=== PATIENT | female | born 1955 | race Caucasian/White ===

== ENCOUNTER 2016-04-14 13:23 | Emergency (ER) | payer BC ==
--- NOTE | 2016-04-14 13:33 | PDOC ---
History of Present Illness - General History Source: Patient, Old Records Exam Limitations: No Limitations <Erin Cortez - Last Filed: 04/14/16 14:18> - General History Source: Patient Exam Limitations: No Limitations - History of Present Illness Initial Comments: 04/14/16 13:48 The patient is a 60 year old female, with a significant past medical history of diabetes, IA, arthritis, who presents to the emergency department with chest pain since this morning and cough for the past 3 days. She describes the chest pain as a pressure sensation, localized under the left breast, ranging from mild to moderate, without radiation. She denies any modifying factors. She notes that her cough is productive of a whitish yellow sputum. She states that her last sugar reading today was 230. The patient denies shortness of breath, headache and dizziness. Denies fever, chills, nausea, vomit, diarrhea and constipation. Denies dysuria, frequency, urgency and hematuria. Allergies: Quinolones, Avelox, Percocet, infliximab Past surgical history: lakeisha carpal tunnel release,right shoulder arthroscopy x3, cholecystectomy Social history: Former smoker (quit 4 years ago) <Pedro Pablo Joshi - Last Filed: 04/14/16 17:02> <Eleonora Singletary - Last Filed: 04/14/16 20:21> - General Chief Complaint: Chest Pain Stated Complaint: CHEST PAIN Time Seen by Provider: 04/14/16 13:33 Past History - Past Medical History Anemia: No Asthma: No Cancer: No Cardiac Disorders: No CVA: No COPD: No CHF: No Dementia: No Diabetes: Yes (x20 yrs) GI Disorders: No Disorders: No HTN: No Hypercholesterolemia: No Liver Disease: No Seizures: No Thyroid Disease: No - Surgical History Abdominal Surgery: No Appendectomy: No Cardiac Surgery: No Cholecystectomy: Yes Lung Surgery: No Neurologic Surgery: No Orthopedic Surgery: Yes (lakeisha carpal tunnel release,right shoulder arthroscopy x3 ) - Psycho/Social/Smoking Cessation Hx Anxiety: No Suicidal Ideation: No Smoking Status: Yes Smoking History: Former smoker Have you smoked in the past 12 months: No Number of Cigarettes Smoked Daily: 3 If you are a former smoker, when did you quit?: 11/2010 'Breaking Loose' booklet given: 04/18/13 Hx Alcohol Use: Yes Drug/Substance Use Hx: No Substance Use Type: None Hx Substance Use Treatment: No <Erin Cortez - Last Filed: 04/14/16 14:18> <Pedro Pablo Joshi - Last Filed: 04/14/16 17:02> <Eleonora Singletary - Last Filed: 04/14/16 20:21> - Past Medical History Allergies/Adverse Reactions: Allergies Allergy/AdvReac Type Severity Reaction Status Date / Time infliximab [From Remicade] Allergy Verified 04/14/16 13:42 moxifloxacin HCl Allergy Hives Verified 04/14/16 13:42 [From Avelox] Quinolones Allergy Hives Verified 04/14/16 13:42 oxycodone HCl [From Percocet] AdvReac Mild Itching Verified 04/14/16 13:42 Home Medications: Ambulatory Orders Folic Acid 1 mg PO DAILY 03/25/11 Insulin Pump Cartridge [Cartridge Stamped] 1 each SQ ASDIR 03/25/11 Lisinopril [Prinivil] 10 mg PO DAILY 03/25/11 Multivitamins [Multivit ([facility] Formulary)] 1 each PO DAILY 03/25/11 Aspirin [Ecotrin] 81 mg PO DAILY 04/14/16 Dulaglutide [Trulicity] 0.75 mg SQ WEEKLY 04/14/16 Pitavastatin Calcium [Livalo] 2 mg PO ASDIR 04/14/16 Tofacitinib Citrate [Xeljanz Xr] 11 mg PO DAILY 04/14/16 Ubidecarenone [Coq-10] 100 mg PO DAILY 04/14/16 Review of Systems - Review of Systems Able to Perform ROS?: Yes Comments:: 04/14/16 13:48 GENERAL/CONSTITUTIONAL: No fever or chills. No weakness. HEAD, EYES, EARS, NOSE AND THROAT: No change in vision. No ear pain or discharge. No sore throat. CARDIOVASCULAR: +Chest pain. No shortness of breath RESPIRATORY: +Cough. No wheezing, or hemoptysis. GASTROINTESTINAL: No nausea, vomiting, diarrhea or constipation. GENITOURINARY: No dysuria, frequency, or change in urination. MUSCULOSKELETAL: No joint or muscle swelling or pain. No neck or back pain. SKIN: No rash NEUROLOGIC: No headache, vertigo, loss of consciousness, or change in strength/ sensation. ENDOCRINE: No increased thirst. No abnormal weight change HEMATOLOGIC/LYMPHATIC: No anemia, easy bleeding, or history of blood clots. ALLERGIC/IMMUNOLOGIC: No hives or skin allergy <Pedro Pablo Joshi - Last Filed: 04/14/16 17:02> *Physical Exam - Vital Signs Last Vital Signs Temp Pulse Resp BP Pulse Ox 70 18 151/64 100 04/14/16 13:25 04/14/16 13:25 04/14/16 13:25 04/14/16 13:25 - Physical Exam Comments: 04/14/16 13:50 GENERAL: Awake, alert, and fully oriented, in no acute distress HEAD: No signs of trauma, normocephalic, atraumatic EYES: PERRLA, EOMI, sclera anicteric, conjunctiva clear ENT: Auricles normal inspection, hearing grossly normal, nares patent, oropharynx clear without exudates. Moist mucosa NECK: Normal ROM, supple, no lymphadenopathy, JVD, or masses LUNGS: +Mild crackles at the left lung base. No distress, speaks full sentences HEART: Regular rate and rhythm, normal S1 and S2, no murmurs, rubs or gallops, peripheral pulses normal and equal bilaterally. ABDOMEN: Soft, nontender, normoactive bowel sounds. No guarding, no rebound. No masses EXTREMITIES: Normal inspection, Normal range of motion, no edema. No clubbing or cyanosis. NEUROLOGICAL: Cranial nerves II through XII grossly intact. Normal speech, normal gait, no focal sensorimotor deficits SKIN: Warm, Dry, normal turgor, no rashes or lesions noted. <Pedro Pablo Joshi - Last Filed: 04/14/16 17:02> - Vital Signs Last Vital Signs Temp Pulse Resp BP Pulse Ox 98.2 F 58 L 18 126/71 99 04/14/16 13:25 04/14/16 19:54 04/14/16 19:54 04/14/16 19:54 04/14/16 19:54 <Eleonora Singletary - Last Filed: 04/14/16 20:21> ED Treatment Course - LABORATORY CBC & Chemistry Diagram: 04/14/16 13:35 04/14/16 13:35 - RADIOLOGY Radiology Studies Ordered: Category Date Time Status CHEST PA & LAT [RAD] Stat Radiology 04/14/16 13:29 Ordered <DanaErin - Last Filed: 04/14/16 14:18> - LABORATORY CBC & Chemistry Diagram: 04/14/16 13:35 04/14/16 13:35 - RADIOLOGY Radiograph Interpretation: 04/14/16 14:06 Chest X-Ray Reviewed by: Dr. Nivia Putnam Impression: No significant interval change or acute lung disease is present. <Pedro Pablo Joshi - Last Filed: 04/14/16 17:02> - LABORATORY CBC & Chemistry Diagram: 04/14/16 13:35 04/14/16 13:35 - ADDITIONAL ORDERS Additional order review: Laboratory Results 04/14/16 04/14/16 04/14/16 19:28 18:01 13:35 INR Sodium 140 Potassium 4.4 Chloride 106 Carbon Dioxide 25 Anion Gap 9 BUN 28 H Creatinine 1.1 H Creat Clearance w eGFR 50.33 POC Glucometer 139.77932 Random Glucose 299 H D Calcium 9.1 Magnesium 2.3 Total Bilirubin 0.4 AST 28 ALT 25 Alkaline Phosphatase 92 Creatine Kinase 123 154 CK-MB (CK-2) 1.345 Troponin I < 0.02 < 0.02 Total Protein 6.8 Albumin 3.8 04/14/16 13:35 INR 1.00 Sodium Potassium Chloride Carbon Dioxide Anion Gap BUN Creatinine Creat Clearance w eGFR POC Glucometer Random Glucose Calcium Magnesium Total Bilirubin AST ALT Alkaline Phosphatase Creatine Kinase CK-MB (CK-2) Troponin I Total Protein Albumin 04/14/16 13:45 Influenza Types A,B Antigen (ALIZA) - Final Nasopharyngeal Swab - Final 04/14/16 04/14/16 18:01 13:35 RBC 4.44 MCV 93.3 MCHC 33.5 RDW 15.2 MPV 10.2 Neutrophils % 55.8 Lymphocytes % 31.7 Monocytes % 9.6 Eosinophils % 1.8 D Basophils % 1.1 POC Glucometer 139.15064 - Medications Given in the ED: ED Medications Discontinued Medications Generic Name Dose Route Start Last Admin Trade Name Freq PRN Reason Stop Dose Admin Sodium Chloride 1,000 mls @ 1,000 mls/hr 04/14/16 14:50 04/14/16 14:54 Normal Saline - IV 04/14/16 15:49 1,000 mls/hr ASDIR STA Administration <Eleonora Singletary - Last Filed: 04/14/16 20:21> Medical Decision Making - Medical Decision Making 04/14/16 14:19 60-year-old female with history of hypertension, diabetes, coronary artery disease status post IA last year who presents to the emergency Department with complaints of cough and left-sided chest pain that his been intermittent 2 days. Differential diagnosis includes but is not limited to: ACS, influenza, pneumonia, musculoskeletal disease, electrolyte abnormality, toxic/metabolic derangement. Plan: 1. EKG 2. Chest x-ray 3. Influenza PCR 4. Labs 5. Pain management 6. Observe and reevaluate <Erin Cortez - Last Filed: 04/14/16 14:18> - Medical Decision Making 04/14/16 16:58 Dr. Jeniffer Reynaga was called regarding the patient at 4:56pm Dr. Reynaga not in the office [phone] Dr. Coto was called regarding the patient at 5:03pm [phone] <Pedro Pablo Joshi - Last Filed: 04/14/16 17:02> *DC/Admit/Observation/Transfer - Attestations Physician Attestion: 04/14/16 14:20 I, Dr. Erin Cortez, attest that the scribes documentation that appears above has been prepared under my direction and personally reviewed by me in its entirety. I confirmed that the note above accurately reflects all work, treatment, procedures, and medical decision-making performed by me. <Erin Cortez - Last Filed: 04/14/16 14:18> - Attestations Scribe Attestion: 04/14/16 13:51 Documentation prepared by Pedro Pablo Joshi, acting as certified ophthalmic medical technician for Erin Cortez MD <Pedro Pablo Joshi - Last Filed: 04/14/16 17:02> <Eleonora Singletary - Last Filed: 04/14/16 20:21> Diagnosis at time of Disposition: Cough Chest pain Qualifiers: Chest pain type: unspecified Qualified Code(s): R07.9 - Chest pain, unspecified - Discharge Dispostion Disposition: HOME Condition at time of disposition: Stable - Referrals Referrals: Jeniffer Reynaga MD [Primary Care Provider] - - Patient Instructions Printed Discharge Instructions: DI for Atypical Chest Pain, DI for Viral Syndrome Additional Instructions: -please take tylenol for fever and body aches -drink plenty of water -rest -return to the emergency department if your symptoms worsen
[2016-04-14 13:43] VITALS: BMI 32.9
[2016-04-14 13:47] LABS: BASOPHIL 1.1 % (0-2.0); EOSINOPHIL 1.8 % (0-4.5); MCH 31.3 pg (25.7-33.7); MCHC 33.5 g/dl (32.0-36.0); MEAN CELL VOLUME 93.3 fl (80-96); MEAN PLT VOLUME 10.2 fl (7.5-11.1); NEUTROPHILS 55.8 % (42.8-82.8); PLATELET COUNT 203 K/MM3 (134-434); RDW 15.2 % (11.6-15.6)
[2016-04-14 13:53] VITALS: TEMP 98.2
[2016-04-14 14:15] LABS: ALBUMIN 3.8 g/dl (3.4-5.0); ANION GAP 9 (8-16); CALCIUM 9.1 mg/dL (8.5-10.1); CO2 25 mmol/L (21-32); GLUCOSE,RANDOM 299 mg/dL (74-106); MAGNESIUM 2.3 mg/dL (1.8-2.4)
[2016-04-14 14:26] LABS: ALK PHOS 92 U/L (45-117); BILIRUBIN,TOTAL 0.4 mg/dL (0.2-1.0); CREATININE 1.1 mg/dL (0.55-1.02); SGPT/ALT 25 U/L (12-78); TOT PROT 6.8 g/dl (6.4-8.2); TROPONIN I < 0.02 ng/ml (0.00-0.05)
[2016-04-14 14:29] LABS: SGOT/AST 28 U/L (15-37)
--- NOTE | 2016-04-14 14:34 | EKG ---
Test Reason : Blood Pressure : / mmHG Vent. Rate : 068 BPM Atrial Rate : 068 BPM P-R Int : 136 ms QRS Dur : 096 ms QT Int : 392 ms P-R-T Axes : 022 -30 048 degrees QTc Int : 416 ms NORMAL SINUS RHYTHM LEFT AXIS DEVIATION MINIMAL VOLTAGE CRITERIA FOR LVH, MAY BE NORMAL VARIANT ABNORMAL ECG WHEN COMPARED WITH ECG OF 09-DEC-2011 09:31, NO SIGNIFICANT CHANGE WAS FOUND Confirmed by CAN DANIELSON, JEANA ([id number]) on 04/14/2016 2:33:54 PM Referred By: Confirmed By:JEANA NORTH MD
[2016-04-14] MEDS ORDERED: SODIUM CHLORIDE 1,000 ML IV STA (14:50)
[2016-04-14 19:55] VITALS: BP 126/71; PULSE 58
[2016-04-14 20:09] LABS: TROPONIN I < 0.02 ng/ml (0.00-0.05)
== END 2016-04-14 20:45 | disposition home or self-care (01) ==
LOC: JER 13:23
PROC: 3E0337Z Introduction of Electrolytic and Water Balance Substance into Peripheral Vein, Percutaneous Approach (ICD-10-PCS; principal; 2016-04-14)
DX: R07.9 Chest pain, unspecified (principal); I25.10 Atherosclerotic heart disease of native coronary artery without angina pectoris; I10 Essential (primary) hypertension; Z87.891 Personal history of nicotine dependence; I25.2 Old myocardial infarction; E11.9 Type 2 diabetes mellitus without complications; Z79.4 Long term (current) use of insulin; Z96.41 Presence of insulin pump (external) (internal)
CPT/HCPCS: 36415; 71010-TC; 80053; 82550; 82553; 83735; 84484; 85025; 85610; 87804; 93005; 93010; 99285-25

== ENCOUNTER 2016-06-24 07:16 | Day surgery (SDC) | payer BC ==
[2016-06-19 10:19] VITALS: BMI 34.9
[2016-06-24] MEDS ORDERED: BSS (NA/CA/MG/K) BALANCED SALT SOLUTION OPHTH SOLN 15 ML BOTTLE ONE (07:31)
[2016-06-24] MEDS ORDERED: LIDOCAINE 1% P/F 10 MG/ML VIAL ONE (07:31)
[2016-06-24] MEDS ORDERED: CARBACHOL 0.01% INTRA-OCULAR 1.5 ML VIAL ONE (07:31)
[2016-06-24] MEDS: CIPROFLOXACIN 0.3% EYE DROPS 5 ML BOTTLE ONE ×3 (08:00→08:10)
[2016-06-24] MEDS: CYCLOPENTOLATE 2% OPHTH SOLN 2 ML BOTTLE ONE ×3 (08:00→08:10)
[2016-06-24] MEDS: PHENYLEPHRINE 2.5% OPHTH SOLN 15 ML BOTTLE ONE ×3 (08:00→08:10)
[2016-06-24] MEDS: TROPICAMIDE 1% OPHTH SOLN 15 ML BOTTLE ONE ×3 (08:00→08:10)
[2016-06-24] MEDS ORDERED: MIDAZOLAM HCL 2 MG/2 ML SINGLE DOSE VIAL ONE (09:43)
[2016-06-24 10:30] VITALS: TEMP 98.4
[2016-06-24] MEDS ORDERED: LACTATED RINGERS SOLUTION 1,000 ML IV SCH (10:30)
[2016-06-24] MEDS ORDERED: ACETAMINOPHEN 325 MG TABLET (FP) PO PRN (10:32)
[2016-06-24] MEDS ORDERED: ONDANSETRON 4 MG/2 ML VIAL IVPUSH PRN (10:33)
[2016-06-24 11:00] VITALS: BP 130/48; PULSE 64
--- NOTE | 2016-06-24 11:53 | OP ---
DATE OF OPERATION: 06/24/2016 OPERATIVE PROCEDURE: Lens Phacoemulsification with Posterior Chamber Intraocular Lens Placement Left Eye PREOPERATIVE DIAGNOSIS: Visually Significant Cataract of Left Eye POSTOPERATIVE DIAGNOSIS: Visually Significant Cataract of Left Eye SURGEON: Johnie Sierra M.D. ANESTHESIA: MAC PROCEDURE: The patient was brought to the operating room and placed under monitored anesthesia care by Anesthesia. A drop of Tetracaine was then placed over the left eye. The patient was then prepped and draped in the usual sterile manner. A speculum was then placed over the left eye. The eye was then well irrigated with copious amounts of BSS (balanced salt solution). The operating microscope was then moved into position. A paracentesis was performed using a 15 degree blade. At this point 0.5 mL of 1% preservative-free lidocaine was injected into the anterior chamber. Amvisc plus was then injected into the anterior chamber. A clear corneal incision was then formed using a 2.2 mm keratome. A capsulorrhexis was then performed in a continuous circular fashion beginning with a cystotome, completed with an Utratas forceps. Hydrodissection was then performed using BSS on a cannula. The phaco probe was then introduced through the corneal wound and the cataract was removed using the phaco chop technique. Approximately 3 seconds of absolute phaco time was used. The remaining cortex was then removed using irrigation and aspiration with an I/A probe. The capsule was then filled with regular Amvisc and the capsule was noted to be intact. A previously selected foldable posterior chamber intraocular lens was then injected into the capsule through the corneal wound using a lens injector. It was then dialed into position using a Sinskey hook. The Amvisc was then removed using irrigation and aspiration. Miostat was then injected through the paracentesis to constrict the pupil. The paracentesis and corneal wound were then hydrated and noted to be water tight. A drop of Maxitrol was then placed over the eye. The speculum was removed and clear shield was taped over the eye. The patient tolerated the procedure well and there were no surgical complications. The patient was asked to follow up in my office the next day. JOHNIE SIERRA M.D. FRANCES/[id number]
== END 2016-06-24 11:05 | disposition home or self-care (01) ==
LOC: FASU 07:16
PROVIDERS: ATTEND Ophthalmology
PROC: 08RK3JZ Replacement of Left Lens with Synthetic Substitute, Percutaneous Approach (ICD-10-PCS; principal; 2016-06-24 09:58)
DX: H26.8 Other specified cataract (principal)

== ENCOUNTER 2016-09-29 19:27 | Emergency (ER) | payer BC ==
[2016-09-29 19:44] VITALS: BP 173/87; PULSE 95; TEMP 98; BMI 34.7
[2016-09-29] MEDS ORDERED: IBUPROFEN 400 MG TABLET (FP) PO ONE ×2 (19:59→20:02)
--- NOTE | 2016-09-29 19:59 | PDOC ---
History of Present Illness - General History Source: Patient Exam Limitations: No Limitations - History of Present Illness Initial Comments: 09/29/16 20:17 The patient is a 60 year old female with a significant past medical history of diabetes, NE, arthritis who presents to the ED s/p fall earlier today. Patient reports she was walking her dog when she slipped and fell onto the mud. She states she heard something crack secondary to falling. Patient states she fell onto her left side and reports left rib pain. She reports her left rib pain radiates to her back. Denies loss of consciousness. Denies head injury or headache.Denies fevers or chills. Denies focal numbness, weakness or tingling. Denies any other symptoms. Allergies: Quinolones, Avelox, Percocet, infliximab Past surgical hx: bilateral carpal tunnel release, right shoulder arthroscopy x3 , cholecystectomy Social hx: Patient is an employee of [employer]. Patient is a former smoker (quit 4 years ago. <Luis Enrique Morin - Last Filed: 09/29/16 21:54> - General History Source: Patient <Pedro Pablo Nicholson - Last Filed: 09/29/16 23:55> - General Chief Complaint: Injury Stated Complaint: RIB INJURY/EMPLOYEE Time Seen by Provider: 09/29/16 19:42 Past History <Luis Enrique Morin - Last Filed: 09/29/16 21:54> - Past Medical History Anemia: No Asthma: No Cancer: No Cardiac Disorders: Yes (SILENT NE 2016,SEEN ON EKG,HAS HAD STRESS AND ECHO,OK) CVA: No COPD: No CHF: No Dementia: No Diabetes: Yes (x20 yrs) GI Disorders: No Disorders: No HTN: Yes Hypercholesterolemia: Yes Liver Disease: No Seizures: No Thyroid Disease: No Other medical history: Rt rotator cuff tear, Rheumatoid Arthritis, - Surgical History Abdominal Surgery: No Appendectomy: No Cardiac Surgery: No Cholecystectomy: Yes Lung Surgery: No Neurologic Surgery: No Orthopedic Surgery: Yes (lakeisha carpal tunnel release,right shoulder arthroscopy x3 ) - Psycho/Social/Smoking Cessation Hx Anxiety: No Suicidal Ideation: No Smoking Status: Yes Smoking History: Current every day smoker Have you smoked in the past 12 months: No Number of Cigarettes Smoked Daily: 2 If you are a former smoker, when did you quit?: 11/2010 Information on smoking cessation initiated: No 'Breaking Loose' booklet given: 04/18/13 Hx Alcohol Use: No Drug/Substance Use Hx: No Substance Use Type: None Hx Substance Use Treatment: No <Pedro Pablo Nicholson - Last Filed: 09/29/16 23:55> - Past Medical History Allergies/Adverse Reactions: Allergies Allergy/AdvReac Type Severity Reaction Status Date / Time infliximab [From Remicade] Allergy Verified 09/29/16 19:44 moxifloxacin HCl Allergy Hives Verified 09/29/16 19:44 [From Avelox] Quinolones Allergy Hives Verified 09/29/16 19:44 oxycodone HCl [From Percocet] AdvReac Mild Itching Verified 09/29/16 19:44 Home Medications: Ambulatory Orders Folic Acid 2 mg PO DAILY 03/25/11 Insulin Pump Cartridge [Cartridge Stamped] 1 each SQ ASDIR 03/25/11 Lisinopril [Prinivil] 10 mg PO DAILY 03/25/11 Multivitamins [Multivit ([facility] Formulary)] 1 each PO DAILY 03/25/11 Aspirin [Ecotrin] 81 mg PO DAILY 04/14/16 Dulaglutide [Trulicity] 0.75 mg SQ WEEKLY 04/14/16 Pitavastatin Calcium [Livalo] 2 mg PO ASDIR 04/14/16 Tofacitinib Citrate [Xeljanz Xr] 11 mg PO DAILY 04/14/16 Ubidecarenone [Coq-10] 2 mg PO DAILY 04/14/16 Ibuprofen 800 mg PO TID #30 tablet 09/29/16 Oxycodone HCl/Acetaminophen [Percocet 5-325 mg Tablet] 1 - 2 tab PO Q6H #20 tablet MDD 4 09/29/16 Review of Systems - Review of Systems Able to Perform ROS?: Yes Comments:: 09/29/16 20:18 CONSTITUTIONAL: No reported: Fever, Chills, Diaphoresis, Generalized Weakness, Malaise, Loss of Appetite HEENT: No reported: Rhinorrhea, Nasal Congestion, Throat Pain, Throat Swelling, Difficulty Swallowing, Mouth Swelling, Ear Pain, Eye Pain, Visual Changes CARDIOVASCULAR: No reported: Chest Pain, Syncope, Palpitations, Irregular Heart Rate, Lightheadedness, Peripheral Edema RESPIRATORY: No reported: Cough, Shortness of Breath, SOB with Exertion, Orthopnea, Wheezing , Stridor, Hemoptysis GASTROINTESTINAL: No reported: Abdominal pain, Abdominal Distension, Nausea, Vomiting, Diarrhea, Constipation, Melena, Hematochezia GENITOURINARY: No reported: Dysuria, Frequency, Urgency, Hesitancy, Flank Pain, Genital Pain MUSCULOSKELETAL: + rib injury No reported: Joint Swelling, Back pain, Neck Pain SKIN: No reported: Rash, Itching, Pallor HEMEATOLOGIC/IMMUNOLOGIC: No reported: Easy Bleeding, Easy Bruising, Lymphadenopathy, Frequent infections ENDOCRINE: No reported: Unexplained Weight Gain, Unexplained Weight Loss, Heat Intolerance , Cold Intolerance NEUROLOGIC: No reported: Headache, Focal Weakness, Paresthesias, Vertigo, Lightheadedness, Unsteady Gait, Seizure, Mental Status Changes, Incontinence PSYCHIATRIC: No reported: Anxiety, Depression All Other Systems: Reviewed and Negative <Luis Enrique Morin - Last Filed: 09/29/16 21:54> *Physical Exam - Vital Signs Last Vital Signs Temp Pulse Resp BP Pulse Ox 98 F 95 H 18 173/87 95 09/29/16 19:41 09/29/16 19:41 09/29/16 19:41 09/29/16 19:41 09/29/16 19:41 - Physical Exam Comments: 09/29/16 20:18 GENERAL: Well developed, well nourished. Awake and alert. No acute distress. HEENT: Normocephalic, atraumatic. PERRLA, EOMI. No conjunctival pallor. Sclera are non- icteric. Moist mucous membranes. Oropharynx is clear. NECK: Supple. Full ROM. No JVD. Carotid pulses 2+ and symmetric, without bruits. No thyromegaly. No lymphadenopathy. CARDIOVASCULAR: Regular rate and rhythm. No murmurs, rubs, or gallops. Distal pulses are 2+ and symmetric. PULMONARY: No evidence of respiratory distress. Lungs clear to auscultation bilaterally. No wheezing, rales or rhonchi. ABDOMINAL: Soft. Non-tender. Non-distended. No rebound or guarding. No organomegaly. Normoactive bowel sounds. MUSCULOSKELETAL: + Left mid axillary tenderness with no ecchymosis or no rib hilary deformity Normal range of motion at all joints. EXTREMITIES: No cyanosis. No clubbing. No edema. No calf tenderness. SKIN: Warm and dry. Normal capillary refill. No rashes. No jaundice. NEUROLOGICAL: Alert, awake, appropriate. Cranial nerves 2-12 intact. No deficits to light touch and temperature in face, upper extremities and lower extremities. No motor deficits in the in face, upper extremities and lower extremities. Normoreflexic in the upper and lower extremities. Normal speech. Toes are down- going bilaterally. Gait is normal without ataxia. PSYCHIATRIC: Cooperative. Good eye contact. Appropriate mood and affect. <Luis Enrique Morin - Last Filed: 09/29/16 21:54> - Vital Signs Last Vital Signs Temp Pulse Resp BP Pulse Ox 98 F 95 H 18 173/87 95 09/29/16 19:41 09/29/16 19:41 09/29/16 19:41 09/29/16 19:41 09/29/16 19:41 <Pedro Pablo Nicholson - Last Filed: 09/29/16 23:55> ED Treatment Course - RADIOLOGY Radiograph Interpretation: 09/29/16 21:54 CT/CHEST CT WITHOUT CONTRAST Impression: Acute slightly offset fracture of the left seventh rib laterally. There is mild subjacent subpleural soft tissue thickening probably representing associated mild edema. No pneumothorax, hemothorax, or pulmonary contusion is identified. Small left upper lobe and left lower lobe subpleural pulmonary nodules are seen. Correlate with 3 month follow-up noncontrast CT. Atherosclerotic coronary calcifications are noted which are probable somewhat more prominent than would be expected for the patient's chronologic age. Reported by: Moy Menon <Luis Enrique Morin - Last Filed: 09/29/16 21:54> Medical Decision Making - Medical Decision Making 09/29/16 21:48 Dr. Nicholson: The scribe's documentation has been prepared under my direction and personally reviewed by me in its entirery. I confirm that the note above accurately reflects all work, treatment, procedures, and medical decision making performed by me. <Pedro Pablo Nicholson - Last Filed: 09/29/16 23:55> *DC/Admit/Observation/Transfer - Attestations Scribe Attestion: 09/29/16 20:18 Documentation prepared by Luis Enrique Morin, acting as medical services coordinator for Pedro Pablo Nicholson MD <Luis Enrique Morin - Last Filed: 09/29/16 21:54> - Discharge Dispostion Admit: No <Pedro Pablo Nicholson - Last Filed: 09/29/16 23:55> Diagnosis at time of Disposition: Left rib fracture Qualifiers: Encounter type: initial encounter Rib fracture type: single rib Fracture type: closed Qualified Code(s): S22.32XA - Fracture of one rib, left side, initial encounter for closed fracture - Discharge Dispostion Disposition: HOME Condition at time of disposition: Stable - Prescriptions Prescriptions: Ibuprofen 800 mg PO TID #30 tablet Oxycodone HCl/Acetaminophen [Percocet 5-325 mg Tablet] 1 - 2 tab PO Q6H #20 tablet MDD 4 - Referrals Referrals: Jeniffer Reynaga MD [Primary Care Provider] - - Patient Instructions Printed Discharge Instructions: DI for Rib Fracture - Post Discharge Activity Work/School Note: Back to Work
== END 2016-09-29 21:55 | disposition home or self-care (01) ==
LOC: JER 19:27
DX: S22.32XA Fracture of one rib, left side, initial encounter for closed fracture (principal); E11.9 Type 2 diabetes mellitus without complications; I25.2 Old myocardial infarction; I10 Essential (primary) hypertension; E78.00 Pure hypercholesterolemia, unspecified; M19.90 Unspecified osteoarthritis, unspecified site; F17.210 Nicotine dependence, cigarettes, uncomplicated; Z79.82 Long term (current) use of aspirin; Z79.4 Long term (current) use of insulin; Z96.41 Presence of insulin pump (external) (internal); W01.0XXA Fall on same level from slipping, tripping and stumbling without subsequent striking against object, initial encounter; Y93.K1 Activity, walking an animal; Y92.9 Unspecified place or not applicable
CPT/HCPCS: 71250-TC; 99282-25

== ENCOUNTER 2017-03-15 13:55 | Emergency (ER) | payer BC ==
--- NOTE | 2017-03-15 14:00 | PDOC ---
History of Present Illness - General History Source: Patient Exam Limitations: No Limitations - History of Present Illness Initial Comments: 03/15/17 14:54 The patient is a 61 year old female, with a significant past medical history of Diabetes(insulin-dependent), [place], hypertension and hyperlipidemia, who presents to the emergency department with a nonproductive cough, nasal congestion, and mild headache since yesterday. Patient rates her headache a 5/10. Patient reports associated TMax of 98.9, chills, joint aches, ear discomfort and sore throat, but denies any tinnitus, dizziness, or lightheadedness. The patient reports taking Mucinex for her symptoms, with mild relief of cough and congestion. 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 Patient states she had her flu shot this year. Patient is concerned, because her symptoms typically begin with nasal congestion and then progresses into her chest and develop into pneumonia. Patient denies any associated chest pain, shortness of breath, diaphoresis, or palpitations. She denies any abdominal pain , nausea, vomiting, diarrhea, or constipation. She denies any dysuria, hematuria , frequency, or urgency. She denies any recent travel. Allergies: Infliximab, Moxifloxacin HCl, Quinolones, Oxycodone HCl Past Surgical History: Cholecystectomy, Bilateral carpal tunnel release, Right shoulder arthroscopy x3 Social History: Former smoker(Approximately 20 packs per year.) No ETOH or recreational drug use. <Fabi Alas - Last Filed: 03/15/17 14:54> <Ashley Rios - Last Filed: 03/15/17 16:13> - General Chief Complaint: Cold Symptoms Stated Complaint: COLD SYMPTOMS Time Seen by Provider: 03/15/17 14:00 Past History <Fabi Alas - Last Filed: 03/15/17 14:54> - Past Medical History Anemia: No Asthma: No Cancer: No Cardiac Disorders: Yes (SILENT [place] 2015,SEEN ON EKG,HAS HAD STRESS AND ECHO,[place]) CVA: No COPD: No CHF: No Dementia: No Diabetes: Yes (x20 yrs) GI Disorders: No Disorders: No HTN: Yes Hypercholesterolemia: Yes Liver Disease: No Seizures: No Thyroid Disease: No - Surgical History Abdominal Surgery: No Appendectomy: No Cardiac Surgery: No Cholecystectomy: Yes Lung Surgery: No Neurologic Surgery: No Orthopedic Surgery: Yes (lakeisha carpal tunnel release,right shoulder arthroscopy x3 ) - Suicide/Smoking/Psychosocial Hx Smoking Status: Yes Smoking History: Current every day smoker Have you smoked in the past 12 months: No Number of Cigarettes Smoked Daily: 2 If you are a former smoker, when did you quit?: 11/2010 'Breaking Loose' booklet given: 04/18/13 Hx Alcohol Use: No Drug/Substance Use Hx: No Substance Use Type: None Hx Substance Use Treatment: No <Ashley Rios - Last Filed: 03/15/17 16:13> - Past Medical History Allergies/Adverse Reactions: Allergies Allergy/AdvReac Type Severity Reaction Status Date / Time infliximab [From Remicade] Allergy Verified 09/29/16 19:44 moxifloxacin HCl Allergy Hives Verified 09/29/16 19:44 [From Avelox] Quinolones Allergy Hives Verified 09/29/16 19:44 oxycodone HCl [From Percocet] AdvReac Mild Itching Verified 09/29/16 19:44 Home Medications: Ambulatory Orders Folic Acid 2 mg PO DAILY 03/25/11 Insulin Pump Cartridge [Cartridge Stamped] 1 each SQ ASDIR 03/25/11 Lisinopril [Prinivil] 10 mg PO DAILY 03/25/11 Multivitamins [Multivit ([facility] Formulary)] 1 each PO DAILY 03/25/11 Aspirin [Ecotrin] 81 mg PO DAILY 04/14/16 Dulaglutide [Trulicity] 0.75 mg SQ WEEKLY 04/14/16 Tofacitinib Citrate [Xeljanz Xr] 11 mg PO DAILY 04/14/16 Ubidecarenone [Coq-10] 2 mg PO DAILY 04/14/16 Cholecalciferol (Vitamin D3) [Vitamin D] 2,000 unit PO DAILY 03/15/17 Review of Systems - Review of Systems Able to Perform ROS?: Yes Comments:: 03/15/17 14:54 GENERAL/CONSTITUTIONAL: Yes fever, chills. No weakness. HEAD, EYES, EARS, NOSE AND THROAT: Yes nasal congestion, sore throat, ear discomfort. No change in vision. No ear discharge or tinnitus. CARDIOVASCULAR: No chest pain or shortness of breath. RESPIRATORY: Yes cough. No wheezing, or hemoptysis. GASTROINTESTINAL: No nausea, vomiting, diarrhea or constipation. GENITOURINARY: No dysuria, frequency, or change in urination. MUSCULOSKELETAL: Yes joint aches. No muscle swelling or pain. No neck or back pain. SKIN: No rash NEUROLOGIC: Yes headache. No vertigo, loss of consciousness, or change in strength/sensation. ENDOCRINE: No increased thirst. No abnormal weight change. HEMATOLOGIC/LYMPHATIC: No anemia, easy bleeding, or history of blood clots. ALLERGIC/IMMUNOLOGIC: No hives or skin allergy. <Fabi Alas - Last Filed: 03/15/17 14:54> *Physical Exam - Vital Signs Last Vital Signs Temp Pulse Resp BP Pulse Ox 98.2 F 54 L 15 150/55 95 03/15/17 13:56 03/15/17 13:56 03/15/17 13:56 03/15/17 13:56 03/15/17 13:56 - Physical Exam Comments: 03/15/17 14:57 GENERAL: Awake, alert, and fully oriented, in no acute distress HEAD: No signs of trauma EYES: PERRLA, EOMI, sclera anicteric, conjunctiva clear ENT: Auricles normal inspection, hearing grossly normal, nares patent, oropharynx clear without erythema or exudates. Moist mucosa NECK: Normal ROM, supple, no lymphadenopathy, JVD, or masses LUNGS: Breath sounds equal, clear to auscultation bilaterally. No wheezes, and no crackles HEART: Regular rate and rhythm, normal S1 and S2, no murmurs, rubs or gallops ABDOMEN: Soft, nontender, normoactive bowel sounds. No guarding, no rebound. No masses EXTREMITIES: Normal range of motion, no edema. No clubbing or cyanosis. No cords, erythema, or tenderness NEUROLOGICAL: Cranial nerves II through XII grossly intact. Normal speech, normal gait SKIN: Warm, Dry, normal turgor, no rashes or lesions noted. <Fabi Alas - Last Filed: 03/15/17 14:54> Medical Decision Making - Medical Decision Making 03/15/17 16:09 Pt presents to the ED complaining of nasal congestion and sore throat consistent with viral syndrome. Afebrile at home and in the ED. Lungs are clear. WIll discharge home. PAtient instructed to follow up with her PMD for worsening symptoms or return to the ED. <Ashley Rios - Last Filed: 03/15/17 16:13> *DC/Admit/Observation/Transfer - Attestations Scribe Attestion: 03/15/17 14:57 Documentation prepared by Fabi Alas, acting as medical coordinator pesticide use for Ashley Rios MD. <Fabi Alas - Last Filed: 03/15/17 14:54> - Discharge Dispostion Admit: No <Ashley Rios - Last Filed: 03/15/17 16:13> Diagnosis at time of Disposition: Upper respiratory infection Qualifiers: URI type: acute nasopharyngitis (common cold) Qualified Code(s): J00 - Acute nasopharyngitis [common cold] - Discharge Dispostion Disposition: HOME Condition at time of disposition: Good - Patient Instructions Printed Discharge Instructions: DI for Viral Upper Respiratory Infection -- Adult Additional Instructions: return to the ED for worsening cough or especially for shortness of breath, chest pain, severe abdominal pain, symptoms at persist for more than 7 days. Follow up with your primary care doctor.
[2017-03-15 14:07] VITALS: BP 150/55; PULSE 54; TEMP 98.2; BMI 34.7
== END 2017-03-15 16:15 | disposition home or self-care (01) ==
LOC: FER 13:55
DX: J00 Acute nasopharyngitis [common cold] (principal); E11.9 Type 2 diabetes mellitus without complications; Z79.4 Long term (current) use of insulin; I25.2 Old myocardial infarction; I10 Essential (primary) hypertension; E78.5 Hyperlipidemia, unspecified; F17.210 Nicotine dependence, cigarettes, uncomplicated
CPT/HCPCS: 87804; 99281-25

== ENCOUNTER 2018-07-05 22:53 | Emergency (ER) | payer BC ==
[2018-07-05 23:01] VITALS: BP 170/60; TEMP 97.8; BMI 37.4
[2018-07-06] MEDS ORDERED: BACITRACIN 0.9 GM PACKET ONE (00:35)
--- NOTE | 2018-07-06 02:53 | PDOC ---
Documentation entered by Jessika Stone SCRIBE, acting as scribe for Eleonora Singletary MD. Eleonora Singletary MD: This documentation has been prepared by the Chase bledsoe Xhesika, SCRIBE, under my direction and personally reviewed by me in its entirety. I confirm that the documentation accurately reflects all work, treatment, procedures, and medical decision making performed by me. History of Present Illness - General Chief Complaint: Injury Stated Complaint: FALL Time Seen by Provider: 07/05/18 23:20 History Source: Patient Exam Limitations: No Limitations - History of Present Illness Initial Comments: 07/05/18 23:46 The patient is a 62 year old female, with a significant past medical history of Diabetes(insulin-dependent), [place], hypertension and hyperlipidemia, who presents to the emergency department with an injury s/p fall. The patient states she was leaving work ([employer]), tripped on curb toe first, and landed on bilateral knees. The patient was able to bare weight after her incident, however, her knees became swollen and painful prompting her arrival to the ED. The patient states she went home, cleaned her knees and took ibuprofen, with mild to no relief. The patient denies hitting her head or LOC. The patient denies chest pain, shortness of breath, headache and dizziness. Denies fever, chills, nausea, vomit, diarrhea and constipation. Denies dysuria, frequency, urgency and hematuria. Allergies: Infliximab, Moxifloxacin HCl, Quinolones, Oxycodone HCl Past Surgical History: Cholecystectomy, Bilateral carpal tunnel release, Right shoulder arthroscopy x3 Social History: Former smoker(Approximately 20 packs per year.) No ETOH or recreational drug use. PCP: Dr. Rodriguez Past History - Past Medical History Allergies/Adverse Reactions: Allergies Allergy/AdvReac Type Severity Reaction Status Date / Time infliximab [From Remicade] Allergy Verified 07/05/18 23:01 moxifloxacin HCl Allergy Hives Verified 07/05/18 23:01 [From Avelox] Quinolones Allergy Hives Verified 07/05/18 23:01 oxycodone HCl [From Percocet] AdvReac Mild Itching Verified 07/05/18 23:01 Home Medications: Ambulatory Orders Folic Acid 2 mg PO DAILY 03/25/11 Insulin Pump Cartridge [Cartridge Stamped] 1 each SQ ASDIR 03/25/11 Lisinopril [Prinivil] 10 mg PO DAILY 03/25/11 Multivitamins [Multivit ([facility] Formulary)] 1 each PO DAILY 03/25/11 Aspirin [Ecotrin] 81 mg PO DAILY 04/14/16 Dulaglutide [Trulicity] 1.5 mg SQ WEEKLY 04/14/16 Tofacitinib Citrate [Xeljanz Xr] 11 mg PO DAILY 04/14/16 Ubidecarenone [Coq-10] 2 mg PO DAILY 04/14/16 Cholecalciferol (Vitamin D3) [Vitamin D] 5,000 unit PO DAILY 03/15/17 Atorvastatin Calcium [Lipitor] 10 mg PO DAILY 07/01/18 Empagliflozin [Jardiance] 10 mg PO DAILY 07/01/18 metFORMIN HCL [Metformin HCl] 500 mg PO HS 07/01/18 Anemia: No Asthma: No Cancer: No Cardiac Disorders: Yes (SILENT [place] 2016,SEEN ON EKG,HAS HAD STRESS AND ECHO,[place]) CVA: No COPD: No CHF: No Dementia: No Diabetes: Yes (x20 yrs) GI Disorders: No Disorders: No HTN: Yes Hypercholesterolemia: No Liver Disease: No Seizures: No Thyroid Disease: No - Surgical History Abdominal Surgery: No Appendectomy: No Cardiac Surgery: No Cholecystectomy: Yes Lung Surgery: No Neurologic Surgery: No Orthopedic Surgery: Yes (lakeisha carpal tunnel release,right shoulder arthroscopy x3 ) - Suicide/Smoking/Psychosocial Hx Smoking Status: Yes Smoking History: Unknown if ever smoked Have you smoked in the past 12 months: No Number of Cigarettes Smoked Daily: 2 If you are a former smoker, when did you quit?: 2016 Information on smoking cessation initiated: No 'Breaking Loose' booklet given: 04/18/13 Hx Alcohol Use: No Drug/Substance Use Hx: No Substance Use Type: None Hx Substance Use Treatment: No Trauma Specific PMHX - Complaint Specific PMHX Arthritis: No Back Injury: No Neck Injury: No Hx Sacro Iliac Joint Dysfunction: No Review of Systems - Review of Systems Able to Perform ROS?: Yes Comments:: 07/05/18 23:47 GENERAL/CONSTITUTIONAL: No fever or chills. No weakness. HEAD, EYES, EARS, NOSE AND THROAT: No change in vision. No ear pain or discharge. No sore throat. CARDIOVASCULAR: No chest pain or shortness of breath. RESPIRATORY: No cough, wheezing, or hemoptysis. GASTROINTESTINAL: No nausea, vomiting, diarrhea or constipation. GENITOURINARY: No dysuria, frequency, or change in urination. MUSCULOSKELETAL: (+) bilateral knee pain and abrasions. No neck or back pain. SKIN: No rash NEUROLOGIC: No headache, vertigo, loss of consciousness, or change in strength/ sensation. ENDOCRINE: No increased thirst. No abnormal weight change. HEMATOLOGIC/LYMPHATIC: No anemia, easy bleeding, or history of blood clots. ALLERGIC/IMMUNOLOGIC: No hives or skin allergy. *Physical Exam - Vital Signs Last Vital Signs Temp Pulse Resp BP Pulse Ox 97.8 F 16 170/60 99 07/05/18 22:58 07/05/18 22:58 07/05/18 22:58 07/05/18 22:58 - Physical Exam Comments: 07/05/18 23:48 GENERAL: Awake, alert, and fully oriented, in no acute distress HEAD: No signs of trauma EYES: PERRLA, EOMI, sclera anicteric, conjunctiva clear ENT: Auricles normal inspection, hearing grossly normal, nares patent, oropharynx clear without exudates. Moist mucosa NECK: Normal ROM, supple, no lymphadenopathy, JVD, or masses LUNGS: Breath sounds equal, clear to auscultation bilaterally. No wheezes, and no crackles HEART: Regular rate and rhythm, normal S1 and S2, no murmurs, rubs or gallops ABDOMEN: Soft, nontender, normoactive bowel sounds. No guarding, no rebound. No masses EXTREMITIES: (+) knee abrasions. (+) R knee has jewlel ballottement. (+) able to lift R leg off bed. (+) R ankle lateral malleolus swelling. (+) L knee abrasion , no swelling. (+) able to stand on L leg with normal range of motion. NEUROLOGICAL: Cranial nerves II through XII grossly intact. Normal speech, normal gait SKIN: Warm, Dry, normal turgor, no rashes or lesions noted. ED Treatment Course - RADIOLOGY Radiology Studies Ordered: Category Date Time Status ANKLE & FOOT-RIGHT* [RAD] Stat Radiology 07/05/18 23:28 Taken KNEE 3 POS-RIGHT [RAD] Stat Radiology 07/05/18 23:28 Taken Medical Decision Making - Medical Decision Making 07/06/18 00:49 no acute fracture on right ankle,there is lateral malleolus swelling, rt ankle sprain . PAULO bandage applied rt knee radiograph ++joint effusion, no acute fracture appreciated left knee a brasion ,bacitracin applied *DC/Admit/Observation/Transfer Diagnosis at time of Disposition: Abrasion, left knee, initial encounter, Effusion of right knee joint Right ankle sprain Qualifiers: Encounter type: initial encounter Involved ligament of ankle: unspecified ligament Qualified Code(s): S93.401A - Sprain of unspecified ligament of right ankle, initial encounter Injury of right knee, leg ankle and foot Qualifiers: Encounter type: initial encounter Qualified Code(s): S89.91XA - Unspecified injury of right lower leg, initial encounter; S99.911A - Unspecified injury of right ankle, initial encounter; S99.921A - Unspecified injury of right foot, initial encounter - Discharge Dispostion Disposition: HOME Condition at time of disposition: Stable - Referrals Referrals: Mitchel Rodriguez MD [Primary Care Provider] - Gregorio Winter MD [Staff Physician] - - Patient Instructions Printed Discharge Instructions: DI for Knee Effusion, DI for Abrasion, DI for Ankle Sprain Additional Instructions: Tonight please apply ice to right knee and ankle to help prevent further swelling and pain Apply bacitracin for left knee as needed Keep the right knee and foot elevated on several pillows while you sleep tonight You may take OTC pain medications such as advil,aleve,tylenol for pain Call your orthopedist for a follow up appointment Return for any worsening symptoms - Post Discharge Activity
== END 2018-07-06 01:16 | disposition home or self-care (01) ==
LOC: JER 22:53
DX: S93.401A Sprain of unspecified ligament of right ankle, initial encounter (principal); S99.911A Unspecified injury of right ankle, initial encounter; S99.921A Unspecified injury of right foot, initial encounter; S80.212A Abrasion, left knee, initial encounter; M25.461 Effusion, right knee; Z87.891 Personal history of nicotine dependence; I10 Essential (primary) hypertension; I25.2 Old myocardial infarction; E11.9 Type 2 diabetes mellitus without complications; W01.0XXA Fall on same level from slipping, tripping and stumbling without subsequent striking against object, initial encounter; Y93.89 Activity, other specified; Y92.238 Other place in hospital as the place of occurrence of the external cause; Y99.0 Civilian activity done for income or pay
CPT/HCPCS: 73562-TC-RT-FY; 73610-TC-RT-FY; 73630-TC-RT-FY; 99281-25

== ENCOUNTER 2018-07-06 07:56 | Day surgery (SDC) | payer BC ==
[2018-07-01 16:43] VITALS: BMI 37.5
[2018-07-06] MEDS: TROPICAMIDE 1% OPHTH SOLN 15 ML BOTTLE ONE ×3 (08:50→09:00)
[2018-07-06] MEDS: CYCLOPENTOLATE 2% OPHTH SOLN 2 ML BOTTLE ONE ×3 (08:50→09:00)
[2018-07-06] MEDS: PHENYLEPHRINE 2.5% OPHTH SOLN 15 ML BOTTLE ONE ×3 (08:50→09:00)
[2018-07-06] MEDS: CIPROFLOXACIN 0.3% EYE DROPS 5 ML BOTTLE ONE ×3 (08:50→09:00)
[2018-07-06] MEDS ORDERED: CARBACHOL 0.01% INTRA-OCULAR 1.5 ML VIAL ONE (09:49)
[2018-07-06] MEDS ORDERED: TETRACAINE 0.5% OPHTH SOLN 2 ML BOTTLE ONE (09:49)
[2018-07-06] MEDS ORDERED: BSS (NA/CA/MG/K) BALANCED SALT SOLUTION OPHTH SOLN 15 ML BOTTLE ONE (09:49)
[2018-07-06] MEDS ORDERED: MIDAZOLAM HCL 2 MG/2 ML SINGLE DOSE VIAL ONE (09:54)
[2018-07-06 10:27] VITALS: TEMP 98.8
[2018-07-06 10:55] VITALS: BP 134/50; PULSE 60
--- NOTE | 2018-07-07 07:31 | OP ---
DATE OF OPERATION: 07/06/2018 OPERATIVE PROCEDURE: Lens phacoemulsification with posterior chamber intraocular lens placement right eye. PREOPERATIVE DIAGNOSIS: Visually significant cataract of right eye. POSTOPERATIVE DIAGNOSIS: Visually significant cataract of right eye. SURGEON: Johnie Sierra M.D. ANESTHESIA: MAC PROCEDURE: The patient was brought to the operating room and placed under monitored anesthesia care by Anesthesia. A drop of tetracaine was then placed over the right eye. The patient was then prepped and draped in the usual sterile manner. A speculum was then placed over the right eye. The eye was then well irrigated with copious amounts of BSS (balanced salt solution). The operating microscope was then moved into position. A paracentesis was performed using a 15 degree blade. At this point 0.5 mL of 1% preservative-free lidocaine was injected into the anterior chamber. Amvisc Plus was then injected into the anterior chamber. A clear corneal incision was then formed using a 2.2 mm keratome. A capsulorrhexis was then performed in a continuous circular fashion beginning with a cystotome and completed with Utrata forceps. Hydrodissection was then performed using BSS on a cannula. The phaco probe was then introduced through the corneal wound and the cataract was removed using the phaco chop technique. Approximately 3 seconds of absolute phaco time was used. The remaining cortex was then removed using irrigation and aspiration with an I/A probe. The capsule was then filled with regular Amvisc and the capsule was noted to be intact. A previously selected foldable posterior chamber intraocular lens was then injected into the capsule through the corneal wound using a lens injector. It was then dialed into position using a Sinskey hook. The Amvisc was then removed using irrigation and aspiration. Miostat was then injected through the paracentesis to constrict the pupil. The paracentesis and corneal wound were then hydrated and noted to be watertight. A drop of Maxitrol was then placed over the eye. The speculum was removed and clear shield was taped over the eye. The patient tolerated the procedure well and there were no surgical complications. The patient was asked to follow up in my office the next day. JOHNIE SIERRA M.D. FRANCES/[id number]
== END 2018-07-06 10:55 | disposition home or self-care (01) ==
LOC: FASU 07:56
PROVIDERS: ATTEND Ophthalmology
PROC: 08RJ3JZ Replacement of Right Lens with Synthetic Substitute, Percutaneous Approach (ICD-10-PCS; principal; 2018-07-06 10:07)
DX: H26.8 Other specified cataract (principal)
CPT/HCPCS: 82962

== ENCOUNTER 2018-08-27 07:28 | Emergency (ER) | payer BC ==
[2018-08-27 07:42] VITALS: BMI 36.4
[2018-08-27] MEDS ORDERED: KETOROLAC TROMETHAMINE 60 MG/2 ML VIAL IM ONE (07:54)
[2018-08-27] MEDS ORDERED: CYCLOBENZAPRINE HCL 10 MG TABLET (FP) PO ONE (07:54)
--- NOTE | 2018-08-27 07:55 | PDOC ---
History of Present Illness - General Chief Complaint: Back Pain Stated Complaint: SENT BY PCP Time Seen by Provider: 08/27/18 07:51 History Source: Patient Exam Limitations: No Limitations - History of Present Illness Initial Comments: 08/27/18 07:55 62y F hx of IDDM, [place], HTN, HL, arthritis, presents with complaint of atraumatic lower back pain with intermittent radiation down b/l buttocks x 2 weeks, pt notes pain is sharp/cramping started gradually and has been worsening - the pain seems worse occasionally when she is walking and wiht certain movements of her legs. The patient denies any falls. Pt notes yesterday, she bent over and felt suddent onset of pain in her L anterior ribs/flank region and it is painful with movement an ddeep breaths. Pt denes any cp, sob, n/v, f/c, cough, urinary / bowel incontinence, hematuria, dysuria, diarrhea, melena. She took motrin yegtserday without any significant relief. Allergies: Infliximab, Moxifloxacin HCl, Quinolones, Oxycodone HCl Past Surgical History: Cholecystectomy, Bilateral carpal tunnel release, Right shoulder arthroscopy x3 Social History: Former smoker(Approximately 20 packs per year.) No ETOH or recreational drug use. PCP: Dr. Rodriguez Constitutional - no reported Fever, Chills, HEENT: no reported vision changes, sore throat Respiratory: no reported cough, sob, hemoptysis Cardiac: no reported chest pain, palpitations, light headedness, leg swelling Abd/GI: no reported abd pain, nausea, vomiting, blood per rectum, melena, diarrhea : no reported dysuria, frequency, discharge Musculskelatal - no reported back pain, joint swelling skin - no reported bruising, erythema, rash neurological: no reported headache, numbness, focal weakness, tingling, ataxia, hematologic: no reported easy bruising, easy bleeding GENERAL: The patient is awake, alert, and fully oriented, Nontoxic - in no acute distress. HEAD: Normocephalic, atraumatic. ABDOMEN: Soft, moderate ttp to LUQ at costal margin , No guarding, no rebound. No CVA tenderness EXTREMITIES: Normal range of motion, no edema. NEUROLOGICAL: No facial assymetry, Normal speech, moiing all 4 ext spontaneously and symmetrically MSK: Mod diffuse ttp at lumbar spine approx L 4/5 PSYCH: Normal mood, normal affect. SKIN: Warm, Dry, normal turgor, ddx - suspect msk - muscle spasm, possible scitaica for her back pain and possible strain on her l anterior rib pain no red flags for cord compression will give toradol/flexeril xray of back and ribs will reassess Past History - Past Medical History Allergies/Adverse Reactions: Allergies Allergy/AdvReac Type Severity Reaction Status Date / Time infliximab [From Remicade] Allergy Itching Verified 07/06/18 08:45 moxifloxacin HCl Allergy Hives Verified 07/05/18 23:01 [From Avelox] Quinolones Allergy Hives Verified 07/05/18 23:01 oxycodone HCl [From Percocet] AdvReac Mild Itching Verified 07/05/18 23:01 Home Medications: Ambulatory Orders Folic Acid 2 mg PO DAILY 03/25/11 Insulin Pump Cartridge [Cartridge Stamped] 1 each SQ ASDIR 03/25/11 Lisinopril [Prinivil] 10 mg PO DAILY 03/25/11 Multivitamins [Multivit ([facility] Formulary)] 1 each PO DAILY 03/25/11 Aspirin [Ecotrin] 81 mg PO DAILY 04/14/16 Dulaglutide [Trulicity] 1.5 mg SQ WEEKLY 04/14/16 Tofacitinib Citrate [Xeljanz Xr] 11 mg PO DAILY 04/14/16 Ubidecarenone [Coq-10] 2 mg PO DAILY 04/14/16 Cholecalciferol (Vitamin D3) [Vitamin D3] 5,000 unit PO DAILY 03/15/17 Atorvastatin Calcium [Lipitor] 10 mg PO DAILY 07/01/18 Empagliflozin [Jardiance] 10 mg PO DAILY 07/01/18 Cyclobenzaprine HCl [Flexeril 10 mg] 10 mg PO BID PRN #60 tablet 08/27/18 Lidocaine 5% Patch [Lidoderm Patch -] 1 patch TP DAILY #7 patch 08/27/18 Anemia: No Asthma: No Cancer: No Cardiac Disorders: Yes (SILENT [place] 2015,SEEN ON EKG,HAS HAD STRESS AND ECHO,OK) CVA: No COPD: No CHF: No Dementia: No Diabetes: Yes (x20 yrs) GI Disorders: No Disorders: No HTN: Yes Hypercholesterolemia: No Liver Disease: No Seizures: No Thyroid Disease: No Other medical history: arthritis - Surgical History Abdominal Surgery: No Appendectomy: No Cardiac Surgery: No Cholecystectomy: Yes Lung Surgery: No Neurologic Surgery: No Orthopedic Surgery: Yes ([place] carpal tunnel release,right shoulder arthroscopy x3 ) - Suicide/Smoking/Psychosocial Hx Smoking Status: Yes Smoking History: Former smoker Have you smoked in the past 12 months: No Number of Cigarettes Smoked Daily: 2 If you are a former smoker, when did you quit?: 2016 Information on smoking cessation initiated: No 'Breaking Loose' booklet given: 04/18/13 Hx Alcohol Use: No Drug/Substance Use Hx: No Substance Use Type: None Hx Substance Use Treatment: No Trauma Specific PMHX - Complaint Specific PMHX Arthritis: No Back Injury: No Neck Injury: No Hx Sacro Iliac Joint Dysfunction: No *Physical Exam - Vital Signs Last Vital Signs Temp Pulse Resp BP Pulse Ox 97.3 F L 59 L 18 160/60 99 08/27/18 07:37 08/27/18 07:37 08/27/18 07:37 08/27/18 07:37 08/27/18 07:37 ED Treatment Course - RADIOLOGY Radiology Studies Ordered: Category Date Time Status RIBS-LEFT SIDE [RAD] Stat Radiology 08/27/18 07:53 Ordered SPINE-LUMBAR SACRAL [RAD] Stat Radiology 08/27/18 07:53 Ordered Medical Decision Making - Medical Decision Making 08/27/18 11:15 xrays reviewed, noted for compression of spinous processes ct reviewed results discussed with the patient, copy o fimaging given to pt pt feeling improved will dc pt with outpatient fu as she has fu with ortho-back in 10 days return precautions were discussed I discussed the physical exam findings, ancillary test results and final diagnoses with the patient. I answered all of the patient's questions. The patient was satisfied with the care received and felt comfortable with the discharge plan and treatment plan. The patient will call their primary care physician within 24 hours to arrange follow-up and will return to the Emergency Department with any new, persistent or worsening symptoms. *DC/Admit/Observation/Transfer Diagnosis at time of Disposition: Back pain Qualifiers: Back pain location: low back pain Chronicity: acute Back pain laterality: midline Sciatica presence: with sciatica Sciatica laterality: bilateral sciatica Qualified Code(s): M54.42 - Lumbago with sciatica, left side - Discharge Dispostion Disposition: HOME Condition at time of disposition: Improved Decision to Admit order: No - Prescriptions Prescriptions: Cyclobenzaprine HCl [Flexeril 10 mg] 10 mg PO BID PRN #60 tablet PRN Reason: Back Pain Lidocaine 5% Patch [Lidoderm Patch -] 1 patch TP DAILY #7 patch - Referrals Referrals: Mitchel Rodriguez MD [Primary Care Provider] - Rex Loyd MD [Staff Physician] - - Patient Instructions Printed Discharge Instructions: DI for Low Back Pain Additional Instructions: Return to the emergency department immediately with ANY new, persistent or worsening symptoms including numbness, tingling, weakness, fevers or any other concerns. Take ibuprofen (400mg)/tylenol(650mg) every 6 hours for 2 days. Take the flexeril 10mg twice daily if you still have pain/discomfort. Caution as it may make you sleepy. Do not drive or put yourself in any position where you would be in danger. Apply heat to your sore muscles. You MUST call and follow up with your doctor tomorrow for further evaluation of your symptoms. Your emergency department visit is not complete without a followup with your doctor for reevaluation.. Results were discussed with you. Please make sure your doctor reviews the results of your emergency evaluation. Print Language: BELARUSIAN - Post Discharge Activity
[2018-08-27] MEDS ORDERED: KETOROLAC TROMETHAMINE 60 MG/2 ML VIAL ONE (08:06)
[2018-08-27] MEDS ORDERED: CYCLOBENZAPRINE HCL 10 MG TABLET (FP) ONE (08:06)
[2018-08-27 09:48] VITALS: TEMP 98.1
[2018-08-27] MEDS ORDERED: LIDOCAINE 5% TOPICAL PATCH TP ONE (11:25)
[2018-08-27] MEDS ORDERED: LIDOCAINE 5% TOPICAL PATCH ONE (11:31)
[2018-08-27 11:45] VITALS: BP 135/65; PULSE 59
== END 2018-08-27 11:43 | disposition home or self-care (01) ==
LOC: JER 07:28
PROC: 3E0233Z Introduction of Anti-inflammatory into Muscle, Percutaneous Approach (ICD-10-PCS; principal; 2018-08-27)
DX: M54.41 Lumbago with sciatica, right side (principal); M54.42 Lumbago with sciatica, left side; E78.5 Hyperlipidemia, unspecified; E11.9 Type 2 diabetes mellitus without complications; Z79.4 Long term (current) use of insulin; M12.9 Arthropathy, unspecified; I25.10 Atherosclerotic heart disease of native coronary artery without angina pectoris; I10 Essential (primary) hypertension; I25.2 Old myocardial infarction
CPT/HCPCS: 71101-TC-LT-FY; 72100-TC-FY; 72131-TC; 99283-25

== ENCOUNTER 2019-08-03 13:55 | Day surgery (SDC) | payer BC ==
[2019-08-03 14:43] VITALS: BMI 26.6
[2019-08-03] MEDS ORDERED: LIDOCAINE HCL 2% (20ML MULTI-DOSE VIAL) ONE (14:59)
[2019-08-03] MEDS ORDERED: MIDAZOLAM HCL 2 MG/2 ML SINGLE DOSE VIAL ONE (15:40)
[2019-08-03] MEDS ORDERED: LIDOCAINE HCL 2% (50ML VIAL) NR ONE (15:55)
[2019-08-03] MEDS ORDERED: oxyCODONE HCL 5 MG TABLET PO PRN ×2 (16:13)
[2019-08-03] MEDS ORDERED: ONDANSETRON 4 MG/2 ML VIAL IVPUSH PRN (16:13)
[2019-08-03] MEDS ORDERED: KETOROLAC TROMETHAMINE 30 MG/1 ML VIAL ONE (16:15)
[2019-08-03] MEDS ORDERED: ONDANSETRON 4 MG/2 ML VIAL ONE (16:15)
[2019-08-03] MEDS ORDERED: LACTATED RINGERS SOLUTION 1,000 ML IV SCH (16:15)
[2019-08-03 17:34] VITALS: BP 110/50; PULSE 59; TEMP 98
== END 2019-08-03 17:34 | disposition home or self-care (01) ==
LOC: FASU 13:55
PROVIDERS: ATTEND Orthopaedic Surgery Hand Surgery
PROC: 0LN70ZZ Release Right Hand Tendon, Open Approach (ICD-10-PCS; principal; 2019-08-03 15:58)
DX: M65.331 Trigger finger, right middle finger (principal)
CPT/HCPCS: 82962; 94760

== ENCOUNTER 2020-03-11 05:01 | Day surgery (SDC) | payer BC ==
[2020-03-07 15:09] VITALS: BMI 27.6
[2020-03-11 10:01] VITALS: TEMP 97.9
[2020-03-11 10:09] VITALS: PULSE 60
[2020-03-11 10:44] VITALS: BP 156/59
== END 2020-03-11 11:20 | disposition home or self-care (01) ==
LOC: JASU-ENDO 05:01
PROVIDERS: ATTEND Internal Medicine Gastroenterology
PROC: 0DB98ZX Excision of Duodenum, Via Natural or Artificial Opening Endoscopic, Diagnostic (ICD-10-PCS; 2020-03-11)
PROC: 0DB68ZX Excision of Stomach, Via Natural or Artificial Opening Endoscopic, Diagnostic (ICD-10-PCS; 2020-03-11)
PROC: 0DB38ZX Excision of Lower Esophagus, Via Natural or Artificial Opening Endoscopic, Diagnostic (ICD-10-PCS; 2020-03-11)
PROC: 0DJD8ZZ Inspection of Lower Intestinal Tract, Via Natural or Artificial Opening Endoscopic (ICD-10-PCS; principal; 2020-03-11 09:00)
DX: Z12.11 Encounter for screening for malignant neoplasm of colon (principal); K57.30 Diverticulosis of large intestine without perforation or abscess without bleeding; K21.00 Gastro-esophageal reflux disease with esophagitis, without bleeding; K29.40 Chronic atrophic gastritis without bleeding; E11.9 Type 2 diabetes mellitus without complications; I10 Essential (primary) hypertension; Z79.4 Long term (current) use of insulin
CPT/HCPCS: 43239; G0121; 88305-TC; 88342-TC

== ENCOUNTER 2020-03-27 11:41 | Emergency (ER) | payer BC ==
[2020-03-27] MEDS ORDERED: ACETAMINOPHEN 500 MG TABLET (FP) PO ONE (12:05)
[2020-03-27] MEDS ORDERED: ACETAMINOPHEN 325 MG TABLET (FP) ONE (12:12)
[2020-03-27 12:28] VITALS: BP 113/59; TEMP 99.7; BMI 27.7
[2020-03-27 16:21] LABS: BASO % 0.9 % (0-2.0); EOS % 0.8 % (0-4.5); HEMOGLOBIN 14.4 GM/dL (10.7-15.3); LYMPH % 35.5 % (8-40); MCH 31.6 pg (25.7-33.7); MCHC 33.5 g/dl (32.0-36.0); MEAN CELL VOLUME 94.5 fl (80-96); MEAN PLT VOLUME 9.3 fl (7.5-11.1); MONO % 7.2 % (3.8-10.2); NEUT % 55.6 % (42.8-82.8); PLATELET COUNT 246 K/MM3 (134-434); RBC 4.55 M/mm3 (3.60-5.2); RDW 15.6 % (11.6-15.6); WHITE BLOOD COUNT 5.5 K/mm3 (4.0-10.0)
[2020-03-27 16:28] LABS: URINE APPEARANCE CLEAR; URINE BILIRUBIN NEGATIVE (NEGATIVE); URINE COLOR YELLOW; URINE GLUCOSE (UA) 3+ (NEGATIVE); URINE KETONE TRACE (NEGATIVE); URINE LEUK ESTERASE NEGATIVE (NEGATIVE); URINE NITRITE NEGATIVE (NEGATIVE); URINE PROTEIN NEGATIVE (NEGATIVE); URINE UROBILINOGEN 0.2 mg/dL (0.2-1.0)
[2020-03-27 16:34] LABS: POTASSIUM 4.3 mmol/L (3.5-5.1)
[2020-03-27 16:36] LABS: CALCIUM 9.8 mg/dL (8.5-10.1)
[2020-03-27 16:37] LABS: ALBUMIN 4.2 g/dl (3.4-5.0); BLOOD UREA NITROGEN 18.3 mg/dL (7-18)
[2020-03-27 16:40] LABS: CREATININE 1.1 mg/dL (0.55-1.3)
[2020-03-27 16:41] LABS: BILIRUBIN,TOTAL 0.8 mg/dL (0.2-1); TOT PROT 6.9 g/dl (6.4-8.2)
[2020-03-27 17:24] VITALS: PULSE 63
== END 2020-03-27 17:35 | disposition home or self-care (01) ==
LOC: JER 11:41
DX: J06.9 Acute upper respiratory infection, unspecified (principal)
CPT/HCPCS: 36415; 71046-TC-FY; 80053; 81003; 83605; 85025; 86769; 87040; 87086; 87804; 99284-25; C9803; U0003

== ENCOUNTER 2021-08-28 15:21 | Emergency (ER) | payer BC ==
[2021-08-28 15:38] VITALS: BP 168/70; PULSE 88; TEMP 97.9; BMI 31.2
[2021-08-28] MEDS ORDERED: SODIUM CHLORIDE 0.9% 1000 ML INFUS.BAG IV ONE (15:48)
[2021-08-28] MEDS ORDERED: ACETAMINOPHEN 1000 MG/100 ML BAG IVPB ONE (16:12)
[2021-08-28] MEDS ORDERED: ACETAMINOPHEN INJECTION 100 ML IVPB ONE (16:13)
[2021-08-28 16:37] LABS: BASO % 0.3 % (0-2.0); EOS % 0.8 % (0-4.5); HEMATOCRIT 45.3 % (32.4-45.2); HEMOGLOBIN 15.1 GM/dL (10.7-15.3); LYMPH % 25.4 % (8-40); MCHC 33.3 g/dl (32.0-36.0); MEAN CELL VOLUME 96.1 fl (80-96); MEAN PLT VOLUME 9.5 fl (7.5-11.1); MONO % 8.5 % (3.8-10.2); PLATELET COUNT 244 10^3/uL (134-434); RBC 4.72 M/mm3 (3.60-5.2); RDW 15.2 % (11.6-15.6); WHITE BLOOD COUNT 8.6 K/mm3 (4.0-10.0)
[2021-08-28 16:58] LABS: CALCIUM 9.7 mg/dL (8.5-10.1)
[2021-08-28 16:59] LABS: ALBUMIN 4.2 g/dl (3.4-5.0); BLOOD UREA NITROGEN 25.4 mg/dL (7-18)
[2021-08-28 17:00] LABS: CREATININE 0.9 mg/dL (0.55-1.3)
[2021-08-28 17:03] LABS: BILIRUBIN,TOTAL 0.5 mg/dL (0.2-1); TOT PROT 7.1 g/dl (6.4-8.2)
[2021-08-28] MEDS ORDERED: IBUPROFEN 600 MG TABLET (FP) PO ONE (19:49)
== END 2021-08-28 19:55 | disposition home or self-care (01) ==
LOC: JER 15:21
PROC: 3E033NZ Introduction of Analgesics, Hypnotics, Sedatives into Peripheral Vein, Percutaneous Approach (ICD-10-PCS; principal; 2021-08-28)
DX: R07.82 Intercostal pain (principal)
CPT/HCPCS: 0241U-QW; 36415; 71045-TC-FY; 71275-TC; 80053; 84484; 85025; 85379; 93005; 93010; 99284-25

== ENCOUNTER 2021-12-31 17:10 | Emergency (ER) | payer BC ==
[2021-12-31 17:35] VITALS: BP 137/42; PULSE 59; RESP 18; TEMP 97.9; BMI 25.0
[2021-12-31] MEDS ORDERED: BEBTELOVIMAB (EUA) 175 MG/2 ML VIAL IVPUSH ONE (18:21)
== END 2021-12-31 20:14 | disposition home or self-care (01) ==
LOC: JER 17:10
DX: U07.1 COVID-19 (principal)
CPT/HCPCS: 99284-25; M0222; Q0222

== ENCOUNTER 2022-01-10 10:34 | Emergency (ER) | payer BC ==
[2022-01-10 10:54] VITALS: BP 157/65; PULSE 52; RESP 17; TEMP 97.8; BMI 25.0
== END 2022-01-10 12:31 | disposition home or self-care (01) ==
LOC: JERFT 10:34 → JER 10:34 → JERFT 12:31
DX: R05.1 Acute cough (principal); J02.9 Acute pharyngitis, unspecified; R09.81 Nasal congestion
CPT/HCPCS: 99281-25

== ENCOUNTER 2022-07-07 08:42 | Emergency (ER) | payer BC ==
[2022-07-07 08:49] VITALS: TEMP 98.8; BMI 26.9
[2022-07-07] MEDS ORDERED: SODIUM CHLORIDE 0.9% 1000 ML INFUS.BAG IV ONE (09:08)
[2022-07-07] MEDS ORDERED: ACETAMINOPHEN 1000 MG/100 ML BAG IVPB ONE (09:08)
[2022-07-07] MEDS ORDERED: ALBUTEROL SO4 2.5/IPRATROPIUM 0.5 INH SOL 3 ML VIAL.NEB. NEB ONE ×2 (09:09→09:22)
[2022-07-07] MEDS ORDERED: DEXAMETHASONE SOD PHOSPHATE 10 MG/1 ML VIAL IVPUSH ONE (09:09)
[2022-07-07] MEDS ORDERED: DEXAMETHASONE SOD PHOSPHATE 10 MG/1 ML VIAL ONE (09:22)
[2022-07-07] MEDS ORDERED: ACETAMINOPHEN INJECTION 100 ML IVPB ONE (09:22)
[2022-07-07 09:36] LABS: HEMATOCRIT 42.6 % (32.4-45.2); HEMOGLOBIN 14.6 GM/dL (10.7-15.3); MCH 32.1 pg (25.7-33.7); MCHC 34.2 g/dl (32.0-36.0); MEAN CELL VOLUME 93.8 fl (80-96); PLATELET COUNT 218 10^3/uL (134-434); RBC 4.54 M/mm3 (3.60-5.2); RDW 15.7 % (11.6-15.6); WHITE BLOOD COUNT 5.2 K/mm3 (4.0-10.0)
[2022-07-07 09:47] LABS: POTASSIUM 4.5 mmol/L (3.5-5.1)
[2022-07-07 09:48] LABS: CALCIUM 9.2 mg/dL (8.5-10.1)
[2022-07-07 09:49] LABS: ALBUMIN 4.1 g/dl (3.4-5.0); BLOOD UREA NITROGEN 20.8 mg/dL (7-18)
[2022-07-07 09:52] LABS: CREATININE 1.1 mg/dL (0.55-1.3)
[2022-07-07 09:54] LABS: BILIRUBIN,TOTAL 0.6 mg/dL (0.2-1); TOT PROT 6.7 g/dl (6.4-8.2)
[2022-07-07 11:15] VITALS: BP 104/49; PULSE 99; RESP 20
== END 2022-07-07 11:16 | disposition home or self-care (01) ==
LOC: JER 08:42
PROC: 3E033NZ Introduction of Analgesics, Hypnotics, Sedatives into Peripheral Vein, Percutaneous Approach (ICD-10-PCS; principal; 2022-07-07)
PROC: 3E033GC Introduction of Other Therapeutic Substance into Peripheral Vein, Percutaneous Approach (ICD-10-PCS; 2022-07-07)
PROC: 3E0F7GC Introduction of Other Therapeutic Substance into Respiratory Tract, Via Natural or Artificial Opening (ICD-10-PCS; 2022-07-07)
DX: R05.9 Cough, unspecified (principal); R07.0 Pain in throat; M79.10 Myalgia, unspecified site; R68.83 Chills (without fever); R09.89 Other specified symptoms and signs involving the circulatory and respiratory systems; J06.9 Acute upper respiratory infection, unspecified; Z20.822 Contact with and (suspected) exposure to COVID-19
CPT/HCPCS: 0241U-QW; 36415; 71045-TC-FY; 80053; 85027; 87651; 93005; 93010; 99285-25; J1100

== ENCOUNTER 2023-08-31 10:30 | Emergency (ER) | payer BC ==
[2023-08-31] MEDS: methylPREDNISolone NA SUCC 125 MG/2 ML VIAL IVPB ONE (11:10)
[2023-08-31] MEDS: ACETAMINOPHEN 1000 MG/100 ML BAG IVPB ONE (11:10)
[2023-08-31 11:18] VITALS: RESP 17; TEMP 98.2; BMI 22.5
[2023-08-31] MEDS ORDERED: ACETAMINOPHEN INJECTION 100 ML IVPB ONE (11:21)
[2023-08-31] MEDS ORDERED: methylPREDNISolone NA SUCC 125 MG/2 ML VIAL ONE (11:22)
[2023-08-31 11:27] LABS: THROAT:GRP A STREP NOT DETECTED (NOTDETECTED)
[2023-08-31 11:33] LABS: BASO % 1.1 % (0-2.0); HEMATOCRIT 43.5 % (32.4-45.2); HEMOGLOBIN 14.1 GM/dL (10.7-15.3); LYMPH % 21.9 % (8-40); MCH 30.7 pg (25.7-33.7); MCHC 32.4 g/dl (32.0-36.0); MEAN CELL VOLUME 94.8 fl (80-96); MEAN PLT VOLUME 8.9 fl (7.5-11.1); MONO % 9.3 % (3.8-10.2); NEUT % 66.7 % (42.8-82.8); PLATELET COUNT 280 10^3/uL (134-434); RBC 4.59 M/mm3 (3.60-5.2)
[2023-08-31 11:51] LABS: POTASSIUM 4.1 mmol/L (3.5-5.1)
[2023-08-31 11:53] LABS: ALBUMIN 3.4 g/dl (3.4-5.0); BLOOD UREA NITROGEN 19.7 mg/dL (7-18)
[2023-08-31 11:56] LABS: CREATININE 0.9 mg/dL (0.55-1.3)
[2023-08-31 11:58] LABS: BILIRUBIN,TOTAL 0.4 mg/dL (0.2-1); TOT PROT 6.3 g/dl (6.4-8.2)
[2023-08-31 13:09] VITALS: BP 100/53; PULSE 68
[2023-08-31 13:47] LABS: HIV INTERPRETATION NEGATIVE (NEGATIVE)
== END 2023-08-31 13:30 | disposition home or self-care (01) ==
LOC: JER 10:30
PROC: 3E033NZ Introduction of Analgesics, Hypnotics, Sedatives into Peripheral Vein, Percutaneous Approach (ICD-10-PCS; principal; 2023-08-31)
PROC: 3E033GC Introduction of Other Therapeutic Substance into Peripheral Vein, Percutaneous Approach (ICD-10-PCS; 2023-08-31)
DX: R06.02 Shortness of breath (principal); J06.9 Acute upper respiratory infection, unspecified; R09.81 Nasal congestion; R05.9 Cough, unspecified; M79.10 Myalgia, unspecified site; Z20.822 Contact with and (suspected) exposure to COVID-19
CPT/HCPCS: 0241U-QW; 36415; 71045-TC-FY; 80053; 84484; 85025; 87389; 87522; 87651; 93005; 93010; 99285-25; J0131